=== PATIENT | male | born 1935 | race Two or more races ===

== ENCOUNTER 2024-12-10 23:20 | Inpatient (IN) | payer MEDICARE, OTHER ==
[~2024-12-10] VITALS: Ht 167.6 cm; Wt 49.9 kg
[2024-12-11 00:08] LABS: BASOPHILS % (AUTO) 0.7 % (0.0-2.0); EOSINOPHILS # (AUTO) 0.1 K/uL (0.0-0.7); EOSINOPHILS % (AUTO) 2.5 % (0.0-6.0); HEMATOCRIT 47 % (39-51); HEMOGLOBIN 15.7 g/dL (13.5-17.5); LYMPHOCYTES # (AUTO) 1.2 K/uL (0.8-4.8); MEAN CORPUSCULAR HEMOGLOBIN 31 PG (26.0-33.0); MEAN CORPUSCULAR HGB CONC 34 g/dl (31.0-36.0); MEAN CORPUSCULAR VOLUME 91 fL (80-96); MONOCYTES # (AUTO) 0.6 K/uL (0.1-1.30); MONOCYTES % (AUTO) 9.5 % (2.0-12.0); NEUTROPHILS # (AUTO) 3.9 K/uL (1.8-8.9); NEUTROPHILS % (AUTO) 66.3 % (43.0-81.0); PLATELET COUNT (AUTO) 178 K/uL (150-450); RED BLOOD CELL COUNT(AUTO) 5.12 MIL/uL (4.5-6.0); RED CELL DISTRIBUTION WIDTH 13.1 % (11.5-15.0); WHITE BLOOD COUNT (AUTO) 5.9 K/uL (4.3-11.0)
[2024-12-11 00:17] LABS: CALCIUM, SERUM 9.4 mg/dL (8.5-10.1); CARBON DIOXIDE 26 mmol/L (21-32); CHLORIDE 106 mmol/L (98-107); CREATININE 0.7 mg/dL (0.6-1.3); GLUCOSE 93 mg/dL (74-106); POTASSIUM 3.7 mmol/L (3.5-5.1); SODIUM SERUM 142 mmol/L (136-145); UREA NITROGEN, BLOOD 17 mg/dL (7-18)
[2024-12-11 00:19] LABS: SERUM AMMONIA 22 umol/L (11-32)
[2024-12-11 00:25] LABS: ALANINE AMINOTRANSFERASE 22 U/L (12-78); ALBUMIN 3.5 g/dL (3.4-5.0); ALCOHOL, BLOOD < 3 mg/dL (0-10); ALKALINE PHOSPHATASE 156 U/L (46-116); ASPARTATE AMINOTRANSFERASE 15 U/L (15-37); BILIRUBIN,TOTAL 0.5 mg/dL (0.2-1.0); TOTAL PROTEIN, SERUM 6.9 g/dL (6.4-8.2)
[2024-12-11 00:26] LABS: ACETAMINOPHEN <10 ug/ml (10-30)
[2024-12-11 00:40] LABS: APPEARANCE,URINE CLEAR (CLEAR); BILIRUBIN,URINE NEGATIVE (NEGATIVE); BLOOD, URINE TRACE-INTA Ery/uL (NEGATIVE); COLOR,URINE YELLOW (YELLOW); KETONES,URINE 1+ mg/dL (NEGATIVE); LEUKOCYTE ESTERASE ,URINE TRACE (NEGATIVE); NITRITE, URINE NEGATIVE (NEGATIVE); PH,URINE 6.5 (5.0-8.0); PROTEIN,URINE NEGATIVE (NEGATIVE); UGLUCOSE NEGATIVE (NEGATIVE); UROBILINOGEN,URINE 0.2 EU/dL (0.2)
[2024-12-11 00:58] LABS: AMPHETAMINE, URINE NEGATIVE (NEGATIVE); BARBITURATE, URINE NEGATIVE (NEGATIVE); BENZODIAZEPINE, URINE NEGATIVE (NEGATIVE); CANNABINOID, URINE NEGATIVE (NEGATIVE); COCCAINE, URINE NEGATIVE (NEGATIVE); OPIATE, URINE NEGATIVE (NEGATIVE); PHENCYCLIDINE SCREEN,URINE NEGATIVE (NEGATIVE)
[2024-12-11 01:08] LABS: ADD URINE CULTURE YES; BACTERIA,URINE Many /HPF (None Seen); WBC,URINE 21-50 /HPF (0-3)
[2024-12-11 01:09] LABS: SQUAMOUS EPITHELIAL CELL,UR Few /HPF (None Seen)
[2024-12-11] MEDS ORDERED: ACETAMINOPHEN 325 MG TABLET PO PRN (02:30)
[2024-12-11] MEDS ORDERED: MAGNESIUM HYDROXIDE 30 ML UDC PO PRN (02:30)
[2024-12-11] MEDS ORDERED: ONDANSETRON HCL/PF 4 MG/2 ML VIAL IVP PRN (02:30)
[2024-12-11] MEDS ORDERED: Z GUARD REMEDY 4 OZ OINT TP PRN (02:30)
[2024-12-11] MEDS ORDERED: MAG HYDROX/AL HYDROX/SIMETH 30 ML UDC PO PRN (02:30)
[2024-12-11] MEDS: IV NS 0.9% 1,000 ML IV PRN (02:36)
[2024-12-11] MEDS ORDERED: QUET25TA PO (03:04)
[2024-12-11] MEDS ORDERED: LORA-259 PO (03:04)
[2024-12-11] MEDS ORDERED: AMLO-212 PO (03:04)
[2024-12-11] MEDS ORDERED: GABA-532 PO (03:04)
[2024-12-11] MEDS ORDERED: FAMO20TA80 PO (03:04)
[2024-12-11] MEDS ORDERED: LIDO30CR47 TP (03:04)
[2024-12-11] MEDS: CEFTRIAXONE 1GM BAG (ER ONLY) 50 ML IV ONE (04:06)
[2024-12-11] MEDS: CEFTRIAXONE 1 G in IV D5W 50 ML IV SCH (04:12)
[2024-12-11 08:00] VITALS: BP 130/68; TEMP 98.3; O2SAT 99
[2024-12-11] MEDS ORDERED: LORAZEPAM 1 MG TABLET PO PRN (09:00)
[2024-12-11] MEDS: GABAPENTIN 100 MG CAPSULE PO SCH (09:36)
[2024-12-11] MEDS: AMLODIPINE BESYLATE 5 MG TABLET PO SCH (09:37)
[2024-12-11] MEDS: FAMOTIDINE (20 MG) 20 MG TABLET PO SCH (09:37)
[2024-12-11] MEDS: LIDOCAINE 5% OINT 35.44 GM TUBE TP SCH (10:00)
[2024-12-11] MEDS: QUETIAPINE FUMARATE 25 MG TABLET PO SCH (12:25)
[2024-12-11 16:42] LABS: THYROID STIMULATING HORMONE 1.83 uIU/mL (0.358-3.74)
[2024-12-11] MEDS ORDERED: QUETIAPINE FUMARATE 25 MG TABLET PO PRN (17:30)
[2024-12-11] MEDS ORDERED: OLANZAPINE 10 MG VIAL IM ONE (17:30)
[2024-12-11 20:00] VITALS: BP 148/89; TEMP 97.8; O2SAT 96
[2024-12-11] MEDS: DIVALPROEX SODIUM 125 MG TABLET.DR PO SCH (20:09)
[2024-12-12 07:51] LABS: BASOPHILS % (AUTO) 0.2 % (0.0-2.0); EOSINOPHILS % (AUTO) 0.5 % (0.0-6.0); HEMATOCRIT 43 % (39-51); HEMOGLOBIN 14.6 g/dL (13.5-17.5); LYMPHOCYTES # (AUTO) 0.8 K/uL (0.8-4.8); LYMPHOCYTES % (AUTO) 10.7 % (20.0-44.0); MEAN CORPUSCULAR HEMOGLOBIN 31 PG (26.0-33.0); MEAN CORPUSCULAR HGB CONC 34 g/dl (31.0-36.0); MEAN CORPUSCULAR VOLUME 91 fL (80-96); MONOCYTES % (AUTO) 12.6 % (2.0-12.0); NEUTROPHILS # (AUTO) 5.8 K/uL (1.8-8.9); PLATELET COUNT (AUTO) 178 K/uL (150-450); RED BLOOD CELL COUNT(AUTO) 4.72 MIL/uL (4.5-6.0); RED CELL DISTRIBUTION WIDTH 13.1 % (11.5-15.0); WHITE BLOOD COUNT (AUTO) 7.6 K/uL (4.3-11.0)
[2024-12-12 07:56] LABS: CREATININE 0.8 mg/dL (0.6-1.3); MAGNESIUM 2.1 mg/dL (1.8-2.4); PHOSPHORUS 2.7 mg/dL (2.5-4.9); POTASSIUM 3.1 mmol/L (3.5-5.1)
[2024-12-12 08:00] VITALS: BP 113/52; O2SAT 97
[2024-12-12] MEDS: POTASSIUM CHLORIDE 20 MEQ POWDER PACKET PO SCH (09:59)
[2024-12-12] MEDS: OLANZAPINE 10 MG VIAL IM ONE (10:37)
[2024-12-12 20:00] VITALS: BP 133/67; TEMP 98.1; O2SAT 95
[2024-12-13 06:07] LABS: FOLIC ACID 18.2 ng/mL (>3.0)
[2024-12-13 08:00] VITALS: BP 131/78; TEMP 98.4; O2SAT 96
[2024-12-13 09:38] VITALS: BP 131/78
[2024-12-13] MEDS ORDERED: CEPH500C2 PO (10:31)
[2024-12-13] MEDS ORDERED: QUET25TA PO (10:31)
[2024-12-13] MEDS ORDERED: DIVA125T2 PO (10:31)
[2024-12-13] MEDS ORDERED: MAGN400O6 PO (15:14)
[2024-12-13] MEDS ORDERED: ALLA266C2 TP (15:14)
[2024-12-13] MEDS ORDERED: MAG30ORA PO (15:14)
== END 2024-12-13 18:54 | DRG 689 ==
LOC: EDBD 23:27 → ER 23:27 → MED 12-11 02:45
PROVIDERS: ADMIT Nurse Practitioner Acute Care; ATTEND Nurse Practitioner Acute Care
DX: N39.0 Urinary tract infection, site not specified (principal); E43 Unspecified severe protein-calorie malnutrition; G92.8 Other toxic encephalopathy; F02.84 Dementia in other diseases classified elsewhere, unspecified severity, with anxiety; F02.82 Dementia in other diseases classified elsewhere, unspecified severity, with psychotic disturbance; F02.83 Dementia in other diseases classified elsewhere, unspecified severity, with mood disturbance; F02.811 Dementia in other diseases classified elsewhere, unspecified severity, with agitation; R64 Cachexia; Z68.1 Body mass index [BMI] 19.9 or less, adult; G30.9 Alzheimer's disease, unspecified; F41.9 Anxiety disorder, unspecified; I10 Essential (primary) hypertension; Z79.899 Other long term (current) drug therapy; B96.89 Other specified bacterial agents as the cause of diseases classified elsewhere; G62.9 Polyneuropathy, unspecified; K21.9 Gastro-esophageal reflux disease without esophagitis; E87.6 Hypokalemia; Z78.1 Physical restraint status
CPT/HCPCS: 36415; 70450-TC; 80048-TC; 80053-TC; 80061-TC; 81001; 82140-TC; 82607-TC; 83735-TC; 83921; 84100-TC; 84425; 84443-TC; 85025-TC; 87081-TC; 87086-TC; 92526; 92611-TC; A4223; G0378; G0480; J0696; J3490; J7060

== ENCOUNTER 2024-12-13 11:48 | Inpatient (IN) | payer MEDICARE, OTHER ==
[~2024-12-13] VITALS: Ht 167.6 cm; Wt 49.9 kg
[~2024-12-13 11:48] MED LIST: AMLO-212 PO; CEPH500C2 PO; DIVA125T2 PO; FAMO20TA80 PO; GABA-532 PO; LIDO30CR47 TP; LORA-259 PO; QUET25TA PO
[2024-12-13] MEDS ORDERED: MAGNESIUM HYDROXIDE 30 ML UDC PO PRN (13:30)
[2024-12-13] MEDS: BLOOD SUGAR DIAGNOSTIC 1 EACH STRIP IN ONE (13:30)
[2024-12-13] MEDS ORDERED: MAG HYDROX/AL HYDROX/SIMETH 30 ML UDC PO PRN ×2 (13:30→16:00)
[2024-12-13] MEDS ORDERED: MAGN400O6 PO (15:14)
[2024-12-13] MEDS ORDERED: ALLA266C2 TP (15:14)
[2024-12-13] MEDS ORDERED: MAG30ORA PO (15:14)
[2024-12-13 16:00] VITALS: BP 105/63; TEMP 97.8; O2SAT 96
[2024-12-13] MEDS ORDERED: QUETIAPINE FUMARATE 25 MG TABLET PO SCH (16:00)
[2024-12-13] MEDS: CEPHALEXIN MONOHYDRATE 500 MG CAPSULE PO SCH (16:49)
[2024-12-13] MEDS: AMLODIPINE BESYLATE 5 MG TABLET PO SCH (16:49)
[2024-12-13] MEDS: GABAPENTIN 100 MG CAPSULE PO SCH (17:00)
[2024-12-13 19:56] VITALS: BP 153/89; TEMP 97.8; O2SAT 100
[2024-12-13] MEDS: QUETIAPINE FUMARATE 25 MG TABLET PO ONE (20:20)
[2024-12-13] MEDS ORDERED: DIVALPROEX SODIUM 125 MG TABLET.DR PO SCH (21:00)
[2024-12-13] MEDS: ZOLPIDEM TARTRATE 5 MG TABLET PO PRN (22:26)
[2024-12-14 08:00] VITALS: BP 136/77; TEMP 98.7; O2SAT 98
[2024-12-14 08:37] LABS: ALBUMIN 3.7 g/dL (3.4-5.0); BILIRUBIN,TOTAL 0.8 mg/dL (0.2-1.0); CALCIUM, SERUM 9.8 mg/dL (8.5-10.1); TOTAL PROTEIN, SERUM 7.2 g/dL (6.4-8.2)
[2024-12-14 08:58] LABS: CHOLESTEROL 204 mg/dL (<200); HDL CHOLESTEROL 88 mg/dL (40-60); LDL 89 mg/dL (0-99); TRIGLYCERIDES 76 mg/dL (30-150)
[2024-12-14] MEDS: DIVALPROEX SODIUM 125 MG TABLET.DR PO SCH (09:00)
[2024-12-14] MEDS: FAMOTIDINE (20 MG) 20 MG TABLET PO SCH (09:00)
[2024-12-14 16:00] VITALS: BP 133/79; TEMP 98.6; O2SAT 96
[2024-12-14] MEDS: ZOLPIDEM TARTRATE 5 MG TABLET PO PRN (21:56)
[2024-12-15 08:00] VITALS: BP 137/76; TEMP 97.5; O2SAT 98
[2024-12-15] MEDS: QUETIAPINE FUMARATE 25 MG TABLET PO SCH (08:31)
[2024-12-15] MEDS: DIVALPROEX SODIUM 125 MG CAP.SPRINK PO SCH (10:00)
[2024-12-15 16:00] VITALS: BP 134/64; TEMP 98; O2SAT 97
[2024-12-15 19:51] VITALS: BP 155/72; TEMP 98.4; O2SAT 100
[2024-12-15 20:00] VITALS: BP 155/72; TEMP 98.4; O2SAT 100
[2024-12-16 08:00] VITALS: BP 119/69; TEMP 98.9; O2SAT 96
[2024-12-16 16:00] VITALS: BP 135/60; TEMP 98.6; O2SAT 98
[2024-12-16 20:00] VITALS: BP 143/66; TEMP 98.1; O2SAT 99
[2024-12-16 21:01] VITALS: BP 143/66; TEMP 98.1; O2SAT 99
[2024-12-17 08:00] VITALS: BP 120/90; TEMP 98; O2SAT 96
[2024-12-17 16:00] VITALS: BP 131/71; TEMP 97.7; O2SAT 95
[2024-12-17 20:31] VITALS: BP 140/80; TEMP 97.9; O2SAT 97
[2024-12-18 08:00] VITALS: BP 117/83; TEMP 98.8; O2SAT 100
[2024-12-18] MEDS: OLANZAPINE 10 MG VIAL IM ONE (12:23)
[2024-12-18 15:52] VITALS: BP 141/73; TEMP 98.2; O2SAT 97
[2024-12-18 20:18] VITALS: BP 164/81; TEMP 98.2; O2SAT 97
[2024-12-18] MEDS: QUETIAPINE FUMARATE 25 MG TABLET PO SCH (21:19)
[2024-12-19 08:00] VITALS: BP 154/75; TEMP 98.7; O2SAT 98
[2024-12-19] MEDS: QUETIAPINE FUMARATE 25 MG TABLET PO SCH (09:00)
[2024-12-19 15:55] VITALS: BP 149/88; TEMP 97.8; O2SAT 97
[2024-12-20 08:00] VITALS: BP 150/80; TEMP 98.7; O2SAT 98
[2024-12-20 16:02] VITALS: BP 141/55; TEMP 98.1; O2SAT 98
[2024-12-20 20:06] VITALS: TEMP 98; O2SAT 100
[2024-12-20] MEDS: QUETIAPINE FUMARATE 25 MG TABLET PO SCH (21:43)
[2024-12-21 08:00] VITALS: BP 125/75; TEMP 98.7; O2SAT 98
[2024-12-21] MEDS: QUETIAPINE FUMARATE 25 MG TABLET PO SCH (09:35)
[2024-12-21] MEDS: Z GUARD REMEDY 4 OZ OINT TP SCH (09:36)
[2024-12-21] MEDS: DIVALPROEX SODIUM 125 MG CAP.SPRINK PO SCH (12:59)
[2024-12-21] MEDS: GABAPENTIN 100 MG CAPSULE PO SCH (13:03)
[2024-12-21] MEDS: OLANZAPINE 10 MG VIAL IM STA (13:45)
[2024-12-21 16:00] VITALS: BP 139/71; TEMP 98.1; O2SAT 98
[2024-12-21 20:36] VITALS: BP 107/89; TEMP 98.2; O2SAT 97
[2024-12-21] MEDS: TRAZODONE 50 MG TABLET PO SCH (21:10)
[2024-12-22 08:00] VITALS: BP 146/72; TEMP 97.5; O2SAT 96
[2024-12-22 16:00] VITALS: BP 116/85; TEMP 98; O2SAT 98
[2024-12-22 20:00] VITALS: BP 160/68; TEMP 98; O2SAT 100
[2024-12-22 22:00] VITALS: BP 125/90
[2024-12-23 08:00] VITALS: BP 120/76; TEMP 98; O2SAT 96
[2024-12-23 16:00] VITALS: BP 149/76; TEMP 97.9; O2SAT 98
[2024-12-23 20:00] VITALS: BP 133/71; TEMP 98; O2SAT 98
[2024-12-23 21:03] VITALS: BP 133/71; TEMP 98
[2024-12-24 08:00] VITALS: BP 131/76; TEMP 97.8; O2SAT 94
[2024-12-24] MEDS: DIVALPROEX SODIUM 125 MG CAP.SPRINK PO SCH (09:53)
[2024-12-24] MEDS: ACETAMINOPHEN 325 MG TABLET PO PRN (10:21)
[2024-12-24 16:00] VITALS: BP 144/80; TEMP 98; O2SAT 98
[2024-12-24 20:00] VITALS: BP 107/92; TEMP 98.1; O2SAT 96
[2024-12-24 20:41] VITALS: BP 107/92; TEMP 98.1; O2SAT 96
[2024-12-25 08:00] VITALS: BP 147/68; TEMP 98.1; O2SAT 99
[2024-12-25 15:17] VITALS: BP 142/62; TEMP 98.2; O2SAT 98
[2024-12-25 20:05] VITALS: BP 153/67; TEMP 98.2; O2SAT 98
[2024-12-26 08:00] VITALS: BP 124/80; TEMP 98.6; O2SAT 96
[2024-12-26 08:36] VITALS: BP 124/80
[2024-12-26] MEDS: HYDROCODONE/APAP 5/325MG TABLET PO PRN (11:55)
== END 2024-12-26 13:43 | DRG 885 ==
LOC: GPS 11:48
PROVIDERS: ADMIT Psychiatry & Neurology Psychiatry; ATTEND Internal Medicine
DX: F39 Unspecified mood [affective] disorder (principal); E43 Unspecified severe protein-calorie malnutrition; G92.8 Other toxic encephalopathy; F02.84 Dementia in other diseases classified elsewhere, unspecified severity, with anxiety; F02.82 Dementia in other diseases classified elsewhere, unspecified severity, with psychotic disturbance; F02.83 Dementia in other diseases classified elsewhere, unspecified severity, with mood disturbance; R64 Cachexia; Z68.1 Body mass index [BMI] 19.9 or less, adult; N39.0 Urinary tract infection, site not specified; S52.692A Other fracture of lower end of left ulna, initial encounter for closed fracture; F29 Unspecified psychosis not due to a substance or known physiological condition; G30.9 Alzheimer's disease, unspecified; I10 Essential (primary) hypertension; F41.9 Anxiety disorder, unspecified; Z79.899 Other long term (current) drug therapy; Z87.891 Personal history of nicotine dependence; F10.11 Alcohol abuse, in remission; K21.9 Gastro-esophageal reflux disease without esophagitis; G62.9 Polyneuropathy, unspecified; E87.6 Hypokalemia; Z91.81 History of falling; B96.89 Other specified bacterial agents as the cause of diseases classified elsewhere; Z78.1 Physical restraint status; W19.XXXA Unspecified fall, initial encounter; Y92.9 Unspecified place or not applicable
CPT/HCPCS: 36415; 73090-TC; 80053-TC; 80061-TC; 80164-TC; 97112-TC; 97116-TC; 97530-TC; J3490